=== PATIENT | male | born 1975 | race Two or more races ===

== ENCOUNTER 2019-01-29 21:17 | Inpatient (IN) | payer MEDICARE ==
[~2019-01-29] VITALS: Ht 180.3 cm; Wt 83.5 kg
--- NOTE | 2019-01-29 23:00 | NUR ---
NURSE NOTES: Received pt as a direct admission from [facility] for left elbow cellulitis. pt is AAOX4, able to ambulate. IV access to Right Hand #22g intact/patent. left elbow with open wound, no active drainage noted, swelling and redness. range of motion to both upper arms, c/o pain to left elbow w/ activity. will f/u prn meds once admission order will be obtained. oriented to room, supplies and call light provided. VSS
[2019-01-29] MEDS ORDERED: AMLODIPINE BESY10 MG ORAL (23:28)
[2019-01-29] MEDS ORDERED: TELMISARTAN40 MG PO (23:28)
[2019-01-29] MEDS ORDERED: HYDROCHLOROTH12.5 M2 ORAL (23:28)
[2019-01-30] VITALS: BP 138/85
--- NOTE | 2019-01-30 01:30 | NUR ---
NURSE NOTES: Pt is resting in bed comfortably, no apparent c/o noted at this time. left elbow supported on pillow. sandwich/snacks provided, tolerated well. call light w/in reach.
[2019-01-30 04:00] VITALS: BP 121/72
--- NOTE | 2019-01-30 07:05 | NUR ---
HAND-OFF: Report given to YAEL Hsieh.
--- NOTE | 2019-01-30 07:15 | NUR ---
NURSE NOTES:BEDSIDE ROUNDS WITH OUTGOING RN(FRANCISCA),PT.AWAKE,A/OX4,ROOM AIR,HEPLOCK INTACT,WITH DRY WOUND ON LEFT ELBOW,DRESSED AND CLEANED BY NIGHT RN WITH 4/4/SARA.NO C/O PAIN.PLAN OF P CARE DISCUSSED AND UNDERSTOOD.
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
[2019-01-30 08:13] LABS: BASOPHILS % (AUTO) 1.2 % (0.0-2.0); EOSINOPHILS % (AUTO) 2.7 % (0.0-3.0); HEMATOCRIT 36.6 % (42.0-52.0); HEMOGLOBIN 12.4 G/DL (14.2-18.0); LYMPHOCYTES % (AUTO) 47.3 % (20.0-45.0); MEAN CORPUSCULAR VOLUME 89 FL (80-99); MONOCYTES % (AUTO) 5.2 % (1.0-10.0); NEUTROPHILS % (AUTO) 43.7 % (45.0-75.0); PLATELET COUNT 253 K/UL (150-450); RED CELL DISTRIBUTION WIDTH 12.1 % (11.6-14.8)
[2019-01-30 08:37] VITALS: BP 135/79
[2019-01-30] MEDS ORDERED: Losartan 50mg tab ORAL SCH (09:00)
[2019-01-30] MEDS ORDERED: Irbesartan 150mg tablet ORAL SCH (09:00)
[2019-01-30 09:06] LABS: ALANINE AMINOTRANSFERASE 17 U/L (12-78); ALBUMIN 3.2 G/DL (3.4-5.0); ALBUMIN/GLOBULIN RATIO 0.9 (1.0-2.7); ALKALINE PHOSPHATASE 59 U/L (46-116); ANION GAP 11 mmol/L (5-15); ASPARTATE AMINO TRANSFERASE 13 U/L (15-37); BILIRUBIN,TOTAL 0.2 MG/DL (0.2-1.0); BLOOD UREA NITROGEN 8 mg/dL (7-18); CALCIUM 8.6 MG/DL (8.5-10.1); CARBON DIOXIDE 25 MMOL/L (21-32); CHLORIDE 108 MMOL/L (98-107); PHOSPHORUS 2.5 MG/DL (2.5-4.9); POTASSIUM 3.1 MMOL/L (3.5-5.1); SODIUM 144 MMOL/L (136-145)
[2019-01-30] MEDS: hydroCHLOROthiazide 12.5mg TAB ORAL SCH (09:10)
[2019-01-30] MEDS: HYDROcodone/Acetamin 5/325 tab ORAL PRN ×2 (09:16→21:33)
[2019-01-30] MEDS ORDERED: Vancomycin 1gm/D5W 275ml IVPB ONE ×2 (10:30)
[2019-01-30 11:49] VITALS: BP 128/88
[2019-01-30] MEDS ORDERED: Tubing IV Secondary IV ONE (15:37)
[2019-01-30] MEDS ORDERED: NS 500ML ONE (15:37)
[2019-01-30 16:15] VITALS: BP 136/72
--- NOTE | 2019-01-30 17:11 | NUR ---
NURSE NOTES:NO SIGNIFICANT CHANGE,OFFERED PAIN MED BUT HE SAID HES OKAY.NEEDS ATTENDED.
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
--- NOTE | 2019-01-30 19:38 | NUR ---
HAND-OFF: Report given to SIMON CONLEY.PATIENT STABLE.
[2019-01-30 20:00] VITALS: BP 130/82
[2019-01-30] MEDS: Vancomycin 1.25gm Premix IVPB SCH (21:00)
[2019-01-31] VITALS: BP 131/76
[2019-01-31 04:00] VITALS: BP 130/85
[2019-01-31 06:06] LABS: BASOPHILS % (AUTO) 1.3 % (0.0-2.0); EOSINOPHILS % (AUTO) 2.6 % (0.0-3.0); HEMATOCRIT 38.9 % (42.0-52.0); LYMPHOCYTES % (AUTO) 43.6 % (20.0-45.0); MEAN CORPUSCULAR VOLUME 88 FL (80-99); MONOCYTES % (AUTO) 6.4 % (1.0-10.0); NEUTROPHILS % (AUTO) 46.1 % (45.0-75.0); PLATELET COUNT 270 K/UL (150-450); WHITE BLOOD COUNT 6.7 K/UL (4.8-10.8)
[2019-01-31 06:23] LABS: ALANINE AMINOTRANSFERASE 15 U/L (12-78); ALBUMIN 3.3 G/DL (3.4-5.0); ALBUMIN/GLOBULIN RATIO 0.8 (1.0-2.7); ALKALINE PHOSPHATASE 57 U/L (46-116); ANION GAP 9 mmol/L (5-15); ASPARTATE AMINO TRANSFERASE 12 U/L (15-37); BILIRUBIN,TOTAL 0.3 MG/DL (0.2-1.0); BLOOD UREA NITROGEN 8 mg/dL (7-18); CALCIUM 9.2 MG/DL (8.5-10.1); CARBON DIOXIDE 27 MMOL/L (21-32); CHLORIDE 106 MMOL/L (98-107); PHOSPHORUS 3.4 MG/DL (2.5-4.9); POTASSIUM 3.4 MMOL/L (3.5-5.1); SODIUM 142 MMOL/L (136-145)
--- NOTE | 2019-01-31 07:39 | NUR ---
HAND-OFF: Report given to YAEL Kohli. patient is awake and VS stable.
--- NOTE | 2019-01-31 07:40 | NUR ---
NURSE NOTES: Patient lying in bed awake. No complain of pain or distress at this time. Dressing on left elbow intact and dry. IV dressing intact and dry. Bed lowest position. Call light within reach. Will continue to monitor.
[2019-01-31 08:00] VITALS: BP 130/90
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
[2019-01-31] MEDS: Vancomycin 1.25gm Premix IVPB SCH ×2 (08:44→22:01)
[2019-01-31] MEDS: hydroCHLOROthiazide 12.5mg TAB ORAL SCH (08:45)
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
[2019-01-31] MEDS: HYDROcodone/Acetamin 5/325 tab ORAL PRN (11:57)
[2019-01-31 12:00] VITALS: BP 143/84
--- NOTE | 2019-01-31 13:05 | NUR ---
CASE MANAGEMENT: INITIAL REVIEW 43 YO M DIRECT ADMIT FROM [facility] CC: LEFT ELBOW PAIN PMHx: HTN. SI:CELLULITIS OF LEFT UPPER LIMB T 97.4 HR 51 RR 17 B/P 135/85 SATS 99% ON RA K 3.1 CL 109 AST 13 IS: PATIENT ADMITTED TO MED/SURG 01/29/2019 @ 9479 DCP: PATIENT TO BE DISCHARGED TO HOME ONCE MEDICALLY CLEARED. PLAN OF CARE: IV ANTIBx WOUND CX NO SURGICAL INTERVENTION AT THIS TIME Addendum: 01/31/19 at 1325 by Sonam Krause INTERQUAL
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
[2019-01-31 16:00] VITALS: BP 136/79
--- NOTE | 2019-01-31 19:24 | Internal Med Progress Note ---
Subjective Physician Name Gil Currie Attending Physician Gil Currie MD Current Medications Medications (Trade) Dose Ordered Sig/Michelle Route PRN Reason Start Time Stop Time Status Last Admin Dose Admin Acetaminophen (Tylenol) 650 mg Q6H PRN ORAL Mild Pain/Temp > 100.5 01/30/19 00:00 03/01/19 00:00 Acetaminophen/ Hydrocodone Bitart ([place] 5/325) 1 tab Q6H PRN ORAL For Pain 01/30/19 00:00 02/06/19 00:00 01/31/19 11:57 Amlodipine Besylate (Norvasc) 10 mg DAILY ORAL 01/30/19 09:00 03/01/19 08:59 01/31/19 08:45 Cefepime HCl 1 gm/ Dextrose 50 ml @ 100 mls/hr EVERY 12 HOURS IVPB 01/30/19 09:00 02/06/19 08:59 01/31/19 08:44 Hydrochlorothiazide (Hydrodiuril) 12.5 mg DAILY ORAL 01/30/19 09:00 03/01/19 08:59 01/31/19 08:45 Losartan Potassium (Cozaar) 50 mg DAILY ORAL 01/30/19 09:00 03/01/19 08:59 Future Hold Ondansetron HCl (Zofran) 4 mg Q4H PRN IV Nausea & Vomiting 01/30/19 00:00 03/01/19 00:00 Vancomycin HCl (Vanco rx to dose) 1 ea DAILY PRN MISC per rx protocol 01/31/19 09:00 03/01/19 08:59 Vancomycin HCl/ Dextrose 275 ml @ 183.333 mls/hr Q12HR IVPB 01/30/19 21:00 02/04/19 20:59 01/31/19 08:44 Allergies: Coded Allergies: LOSARTAN (Verified Allergy, Severe, MOUTH SWELLING, 01/30/19) IODINE AND IODIDE CONTAINING PRODUC (Verified Allergy, Unknown, Itching, ) MORPHINE (Verified Allergy, Unknown, Itching, 01/29/19) PIPERACILLIN (Verified Allergy, Unknown, Itching, 01/29/19) TAZOBACTAM (Verified Allergy, Unknown, Itching, 01/29/19) Subjective awake, alert, responsive, No CO or SOB Objective Last Vital Signs Date Time Temp Pulse Resp B/P (MAP) Pulse Ox O2 Delivery O2 Flow Rate FiO2 01/31/19 16:00 98.9 59 20 136/79 (98) 98 01/31/19 09:00 Room Air Laboratory Tests Test 01/31/19 04:45 White Blood Count 6.7 K/UL (4.8-10.8) Red Blood Count 4.40 M/UL (4.70-6.10) L Hemoglobin 13.0 G/DL (14.2-18.0) L Hematocrit 38.9 % (42.0-52.0) L Mean Corpuscular Volume 88 FL (80-99) Mean Corpuscular Hemoglobin 29.5 PG (27.0-31.0) Mean Corpuscular Hemoglobin Concent 33.3 G/DL (32.0-36.0) Red Cell Distribution Width 12.0 % (11.6-14.8) Platelet Count 270 K/UL (150-450) Mean Platelet Volume 6.8 FL (6.5-10.1) Neutrophils (%) (Auto) 46.1 % (45.0-75.0) Lymphocytes (%) (Auto) 43.6 % (20.0-45.0) Monocytes (%) (Auto) 6.4 % (1.0-10.0) Eosinophils (%) (Auto) 2.6 % (0.0-3.0) Basophils (%) (Auto) 1.3 % (0.0-2.0) Erythrocyte Sedimentation Rate 27 MM/HR (0-15) H Sodium Level 142 MMOL/L (136-145) Potassium Level 3.4 MMOL/L (3.5-5.1) L Chloride Level 106 MMOL/L (98-107) Carbon Dioxide Level 27 MMOL/L (21-32) Anion Gap 9 mmol/L (5-15) Blood Urea Nitrogen 8 mg/dL (7-18) Creatinine 1.0 MG/DL (0.55-1.30) Estimat Glomerular Filtration Rate > 60 mL/min (>60) Glucose Level 90 MG/DL (74-106) Calcium Level 9.2 MG/DL (8.5-10.1) Phosphorus Level 3.4 MG/DL (2.5-4.9) Magnesium Level 1.9 MG/DL (1.8-2.4) Total Bilirubin 0.3 MG/DL (0.2-1.0) Aspartate Amino Transf (AST/SGOT) 12 U/L (15-37) L Alanine Aminotransferase (ALT/SGPT) 15 U/L (12-78) Alkaline Phosphatase 57 U/L (46-116) C-Reactive Protein, Quantitative < 0.4 mg/dL (0.00-0.90) Total Protein 7.2 G/DL (6.4-8.2) Albumin 3.3 G/DL (3.4-5.0) L Globulin 3.9 g/dL Albumin/Globulin Ratio 0.8 (1.0-2.7) L Intake and Output 01/30/19 01/31/19 18:59 06:59 Intake Total 850 ml 720 ml Balance 850 ml 720 ml Intake Oral 800 ml 720 ml IV Total 50 ml # Voids 3 3 Objective GENERAL: The patient is awake, responsive, and in no acute distress. HEAD AND NECK: Pupils are reactive to light. Extraocular movements intact. Neck was supple. No JVD. LUNGS: Good air entry. No wheezing or rales. HEART: Reveals S1 and S2. Regular rhythm. No gallops. ABDOMEN: Soft, nondistended, and nontender. Positive bowel sounds. EXTREMITIES: No cyanosis, clubbing, or edema. Left elbow has an opening wound. No sign of discharge, less tender to touch, erythematous, and edematous. NEUROLOGIC: Cranial nerves II through XII grossly intact. Motor is 5/5 in all extremities. Gait is intact. RECTAL/GENITOURINARY: Refused and deferred. PSYCHIATRY: Mood and affect is intact. Assessment/Plan Assessment/Plan ASSESSMENT: 1. Left elbow infection, possible cellulitis, however, cannot rule out abscess. 2. Hypertension. 3. Hypokalemia. PLAN: 1. Admit the patient to Med/Surg. We will follow up laboratory. Broad-spectrum antibiotics with vancomycin as well as cefepime. 2. Resume home medication and pain medication. 3. Code status, Full Code. 4. DVT prophylaxis with SCD. 5. Discussed with Dr. Aquino from Pulmonary Critical Care, Dr. Michael Hamilton from Orthopedics. 6. Consider to SNF placement due to the patient's status at this time. 7. Kcl supplements. Gil Currie MD Jan 31, 2019 19:24
--- NOTE | 2019-01-31 19:29 | NUR ---
HAND-OFF: Report given to Kalen CONLEY. Patient in stable condition.
--- NOTE | 2019-01-31 19:30 | NUR ---
NURSE NOTES: Report taken from YAEL Kohli. Patient is awake and in bed, MD Kendrick at bedside. No signs of distress on room air. Having some minor complaint of pain at wound site, 10/03. Wound is covered in gauze and krillex, dry and intact, continue to assess. Wound consult placed. IV site c/d/i and patent, no fluids running currently. Patient is ambulatory. Bed in lowest position, call light within reach.
[2019-01-31 20:00] VITALS: BP 123/80
[2019-02-01] VITALS: BP 125/78
[2019-02-01 04:00] VITALS: BP 128/78
[2019-02-01 06:15] LABS: BASOPHILS % (AUTO) 1.4 % (0.0-2.0); EOSINOPHILS % (AUTO) 2.9 % (0.0-3.0); HEMATOCRIT 40.7 % (42.0-52.0); HEMOGLOBIN 13.5 G/DL (14.2-18.0); LYMPHOCYTES % (AUTO) 39.4 % (20.0-45.0); MEAN CORPUSCULAR VOLUME 89 FL (80-99); MONOCYTES % (AUTO) 5.9 % (1.0-10.0); NEUTROPHILS % (AUTO) 50.4 % (45.0-75.0); PLATELET COUNT 267 K/UL (150-450); RED BLOOD COUNT 4.59 M/UL (4.70-6.10); WHITE BLOOD COUNT 7.8 K/UL (4.8-10.8)
[2019-02-01 06:37] LABS: ALANINE AMINOTRANSFERASE 19 U/L (12-78); ALBUMIN 3.7 G/DL (3.4-5.0); ALBUMIN/GLOBULIN RATIO 1.1 (1.0-2.7); ALKALINE PHOSPHATASE 60 U/L (46-116); ANION GAP 8 mmol/L (5-15); ASPARTATE AMINO TRANSFERASE 14 U/L (15-37); BILIRUBIN,TOTAL 0.2 MG/DL (0.2-1.0); BLOOD UREA NITROGEN 14 mg/dL (7-18); CALCIUM 9.2 MG/DL (8.5-10.1); CARBON DIOXIDE 29 MMOL/L (21-32); CHLORIDE 102 MMOL/L (98-107); PHOSPHORUS 3.6 MG/DL (2.5-4.9); POTASSIUM 3.7 MMOL/L (3.5-5.1); SODIUM 139 MMOL/L (136-145)
--- NOTE | 2019-02-01 07:10 | NUR ---
HAND-OFF: Report given to YAEL Kohli. Patient is asleep VS stable .
--- NOTE | 2019-02-01 07:15 | NUR ---
NURSE NOTES: Patient lying in bed awake. Complain of pain 6/10 on left elbow area. Will offer pain medication. Skin intact and dry. Wound dressing on left elbow intact and dry. IV dressing intact and dry. Bed lowest position. call light within reach. Will continue to monitor.
[2019-02-01 08:00] VITALS: BP 131/79
[2019-02-01] MEDS: Vancomycin 1.25gm Premix IVPB SCH (08:51)
[2019-02-01] MEDS: hydroCHLOROthiazide 12.5mg TAB ORAL SCH (08:51)
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
[2019-02-01 12:00] VITALS: BP 126/85
--- NOTE | 2019-02-01 12:49 | NUR ---
DISCHARGE PLANNING: NOTE CM MET WITH PT AT THE BEDSIDE. DC PLAN IS TO [facility] THEN TO SOBER LIVING KRISTINE SPOKE TO YOLANDA AT [phone] X [phone] HE IS WILLING TO ACCEPT PT. CLINICALS TO BE FAXED TO [phone] Addendum: 02/01/19 at 1431 by Sonam Krause CM WORKING NUMBER FOR PT IS [phone]
[2019-02-01] MEDS: HYDROcodone/Acetamin 5/325 tab ORAL PRN (12:59)
--- NOTE | 2019-02-01 13:21 | NUR ---
Social Service Note IGNACIA met with patient to assess for homelessness. Patient states he has been homeless for about 1 year. Patient contributes his homelessness to substance abuse, loss of father and limited income. [facility] to [facility]. Currently patient only receiving SDI, Medicare A&B and medi-hayley shows no eligibility at this time. Patient's mailing address is [address] [place] [address] [facility] [address]. Patient doesn't want to provided mother's phone contact information and states the only person to be contacted is Hapilarmariposa Josef [phone], girlfriend. Patient states he has utilized emergency shelters such as [employer], various cold winter shelters, friends couches and family members home. Patient states he has located a SNF in the area where his twin 2 year old sons reside [address], . Once his antibiotics are completed patient states he has located a sober living in which he will transition. Patient states he doesn't require substance abuse referrals and denies mental health disorder. CM has referred patient for placement. Will continue to monitor and be available as needed.
[2019-02-01 16:00] VITALS: BP 146/94
--- NOTE | 2019-02-01 16:00 | NUR ---
NURSE NOTES: Spoke to regarding discharge and received new order - 1. Ok to discharge patient, 2. Continue Vancomycin 1.25 gm IV Q 12 hr for x 7 days. Order read back and carried out.
[2019-02-01] MEDS ORDERED: VANCOMYCIN1.25 GM/12 IVPB (18:15)
--- NOTE | 2019-02-01 18:35 | NUR ---
NURSE NOTES: Called [facility] and spoke to Rose CONLEY. Given report patient will transfer to facility today.
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
[2019-02-01] MEDS ORDERED: NS 275ml ONE (19:44)
--- NOTE | 2019-02-01 19:45 | NUR ---
NURSE NOTES: Patient discharged with [facility] in stable condition. Discharge instruction given to patient and verbalized understanding. Discharge packet and belonging and home medication given to patient. Instructed to give discharge packet to facility and verbalized understanding. IV and ID removed. Patient ambulated out with all personal belongings with steady gait.
--- NOTE | 2019-02-01 23:46 | Internal Med Progress Note ---
Subjective Physician Name Gil Currie Attending Physician Gil Currie MD Allergies: Coded Allergies: LOSARTAN (Verified Allergy, Severe, MOUTH SWELLING, 01/30/19) IODINE AND IODIDE CONTAINING PRODUC (Verified Allergy, Unknown, Itching, ) MORPHINE (Verified Allergy, Unknown, Itching, 01/29/19) PIPERACILLIN (Verified Allergy, Unknown, Itching, 01/29/19) TAZOBACTAM (Verified Allergy, Unknown, Itching, 01/29/19) Subjective awake, alert, responsive, No CO or SOB Objective Last Vital Signs Date Time Temp Pulse Resp B/P (MAP) Pulse Ox O2 Delivery O2 Flow Rate FiO2 02/01/19 16:00 97.3 66 20 146/94 (111) 100 02/01/19 09:00 Room Air Laboratory Tests Test 02/01/19 04:55 White Blood Count 7.8 K/UL (4.8-10.8) Red Blood Count 4.59 M/UL (4.70-6.10) L Hemoglobin 13.5 G/DL (14.2-18.0) L Hematocrit 40.7 % (42.0-52.0) L Mean Corpuscular Volume 89 FL (80-99) Mean Corpuscular Hemoglobin 29.5 PG (27.0-31.0) Mean Corpuscular Hemoglobin Concent 33.3 G/DL (32.0-36.0) Red Cell Distribution Width 12.0 % (11.6-14.8) Platelet Count 267 K/UL (150-450) Mean Platelet Volume 6.8 FL (6.5-10.1) Neutrophils (%) (Auto) 50.4 % (45.0-75.0) Lymphocytes (%) (Auto) 39.4 % (20.0-45.0) Monocytes (%) (Auto) 5.9 % (1.0-10.0) Eosinophils (%) (Auto) 2.9 % (0.0-3.0) Basophils (%) (Auto) 1.4 % (0.0-2.0) Erythrocyte Sedimentation Rate 21 MM/HR (0-15) H Sodium Level 139 MMOL/L (136-145) Potassium Level 3.7 MMOL/L (3.5-5.1) Chloride Level 102 MMOL/L (98-107) Carbon Dioxide Level 29 MMOL/L (21-32) Anion Gap 8 mmol/L (5-15) Blood Urea Nitrogen 14 mg/dL (7-18) Creatinine 1.0 MG/DL (0.55-1.30) Estimat Glomerular Filtration Rate > 60 mL/min (>60) Glucose Level 93 MG/DL (74-106) Calcium Level 9.2 MG/DL (8.5-10.1) Phosphorus Level 3.6 MG/DL (2.5-4.9) Magnesium Level 2.0 MG/DL (1.8-2.4) Total Bilirubin 0.2 MG/DL (0.2-1.0) Aspartate Amino Transf (AST/SGOT) 14 U/L (15-37) L Alanine Aminotransferase (ALT/SGPT) 19 U/L (12-78) Alkaline Phosphatase 60 U/L (46-116) C-Reactive Protein, Quantitative < 0.4 mg/dL (0.00-0.90) Total Protein 7.0 G/DL (6.4-8.2) Albumin 3.7 G/DL (3.4-5.0) Globulin 3.3 g/dL Albumin/Globulin Ratio 1.1 (1.0-2.7) Microbiology Date/Time Source Procedure Growth Status 01/30/19 06:19 Blood Blood Culture - Preliminary NO GROWTH AFTER 24 HOURS Resulted 01/30/19 06:04 Blood Blood Culture - Preliminary NO GROWTH AFTER 24 HOURS Resulted Intake and Output 01/31/19 02/01/19 18:59 06:59 Intake Total 1000 ml 975 ml Balance 1000 ml 975 ml Intake Oral 1000 ml 975 ml # Voids 4 3 Objective GENERAL: The patient is awake, responsive, and in no acute distress. HEAD AND NECK: Pupils are reactive to light. Extraocular movements intact. Neck was supple. No JVD. LUNGS: Good air entry. No wheezing or rales. HEART: Reveals S1 and S2. Regular rhythm. No gallops. ABDOMEN: Soft, nondistended, and nontender. Positive bowel sounds. EXTREMITIES: No cyanosis, clubbing, or edema. Left elbow has an opening wound. No sign of discharge, less tender to touch, erythematous, and edematous. NEUROLOGIC: Cranial nerves II through XII grossly intact. Motor is 5/5 in all extremities. Gait is intact. RECTAL/GENITOURINARY: Refused and deferred. PSYCHIATRY: Mood and affect is intact. Assessment/Plan Assessment/Plan ASSESSMENT: 1. Left elbow infection, possible cellulitis, however, cannot rule out abscess. 2. Hypertension. 3. Hypokalemia. PLAN: 1. Admit the patient to Med/Surg. We will follow up laboratory. Broad-spectrum antibiotics with vancomycin as well as cefepime. 2. pain medication PRN. 3. Code status, Full Code. 4. DVT prophylaxis with SCD. 5. Discussed with Dr. Aquino from Pulmonary Critical Care, Dr. Michael Hamilton from Orthopedics. 6. DC to SNF today. Gil Currie MD Feb 01, 2019 23:46
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
== END 2019-02-01 19:45 | DRG 603 ==
LOC: 3E 22:43
DX: L03.114 Cellulitis of left upper limb (principal); L02.414 Cutaneous abscess of left upper limb; T63.301A Toxic effect of unspecified spider venom, accidental (unintentional), initial encounter; I10 Essential (primary) hypertension; S50.362A Insect bite (nonvenomous) of left elbow, initial encounter; W57.XXXA Bitten or stung by nonvenomous insect and other nonvenomous arthropods, initial encounter; E87.6 Hypokalemia; Z59.0 Homelessness; Z88.6 Allergy status to analgesic agent; Z88.1 Allergy status to other antibiotic agents; Z88.3 Allergy status to other anti-infective agents; Z88.8 Allergy status to other drugs, medicaments and biological substances; T14.90XS Injury, unspecified, sequela
CPT/HCPCS: 36415; 80053; 80202; 83735; 84100; 85025; 85651; 86140; 87040; J8499